=== PATIENT | female | born 1980 | race African-American/Black ===

== ENCOUNTER 2020-02-25 14:04 | Observation (INO) ==
[2020-02-25 15:34] LABS: Basophils # 0.1 10*3/uL (0.0-0.2); Basophils % 0.8 % (0.0-0.8); Eosinophils # 0.3 10*3/uL (0.0-0.87); Hematocrit 28.1 VOL% (35.7-47.0); Immature Granulocytes % 0.4 %; Immature Granulocytes Absolute 0.04 #; Lymphocytes # 1.3 10*3/uL (1.4-4.0); Lymphocytes % 11.7 % (21.3-54.2); Mean Corpuscular HGB Conc 27.4 GM/DL (32-36); Mean Corpuscular Volume 61.4 FL (87-102); Monocytes % 4.6 % (1.7-12.7); Neutrophils % 79.5 % (38.7-73.9); Platelet Count 336 T/CUMM (130-400); Red Blood Count 4.58 MC/CUMM (3.8-5.5); Red Cell Distribution Width 24.5 % (9.3-17.3); White Blood Count 10.7 T/CUMM (4-12)
[2020-02-25 15:35] LABS: Hemoglobin 7.7 GM/DL (12.0-16.0)
[2020-02-25 16:12] LABS: Band Neutrophils 1 % (0-10); Eosinophils 2 % (0-10); Lymphocytes 11 % (20-55); Segmented Neutrophils 81 % (50-85); Total Cells Counted 100
[2020-02-25 16:18] LABS: Ovalocytes 1+; Platelet Estimate Normal
[2020-02-25 16:19] LABS: Hypochromasia 1+; Polychromasia 1+; Tear Drop Cells 1+
[2020-02-25 16:20] LABS: Microcytosis 2+
[2020-02-25] MEDS ORDERED: ACETAMINOPHEN 325 MG TABLET PO PRN (18:24)
[2020-02-25] MEDS ORDERED: SODIUM CHLORIDE 0.9% 1,000 ML IV PRN (18:27)
[2020-02-25 20:11] VITALS: BP 164/120
== END 2020-02-25 20:55 | disposition left against medical advice (07) ==
LOC: N.ED 14:04 → N.EDINP 14:04 → N.TELES 19:39
PROVIDERS: ADMIT Internal Medicine Geriatric Medicine; ATTEND Internal Medicine Geriatric Medicine